=== PATIENT | male | born 1950 | race Caucasian/White ===

== ENCOUNTER 2016-05-03 08:57 | Outpatient (RCR) | payer OTHER | END 2016-08-01 | LOC: WSOH | DX: S09.90XD Unspecified injury of head, subsequent encounter (principal); X58.XXXD Exposure to other specified factors, subsequent encounter ==

== ENCOUNTER 2018-02-21 12:03 | Outpatient (CLI) | payer BC, OTHER ==
[~2018-02-21] VITALS: Ht 180.3 cm; Wt 95.9 kg
[2018-02-21] MEDS ORDERED: LIPITOR 10MG10 MG PO (14:04)
[2018-02-21] MEDS ORDERED: HYGROTON 2525 MG/TAB PO (14:05)
[2018-02-21 14:09] VITALS: BP 115/73; PULSE 52; TEMP 97.9
[2018-02-21 14:44] LABS: HEMATOCRIT 44.7 % (42.0-52.0); HEMOGLOBIN 15.6 g/dl (13.5-18.0); MEAN CELL VOLUME 93 fl (80.0-100.0); MEAN CORPUSCULAR HEMOGLOBIN 33 pg (27.0-31.0); MEAN CORPUSCULAR HGB CONC 35 g/dl (33.0-37.0); MEAN PLATELET VOLUME 9.2 fl (7.4-10.4); PLATELET COUNT 160 K/mm3 (130-400); REDCELL DISTRIBUTION WIDTH-CV 12.1 % (11.5-14.5)
[2018-02-21 14:45] LABS: INR 1.2 (0.8-3.0); PROTHROMBIN TIME 13.7 SECONDS (9.7-12.8)
[2018-02-21 14:48] LABS: PARTIAL THROMBOPLASTIN TIME 37.2 SECONDS (26.0-37.0)
[2018-02-21 15:04] LABS: ANISOCYTOSIS 1+; BAND 2 % (0-10); EOSINOPHIL 2 % (0-4); LYMPHOCYTE 16 % (20.0-51.0); NEUTROPHILS 76 % (42.0-75.2); PLATELET ESTIMATE NORMAL (NORMAL)
[2018-02-21 15:05] LABS: ALBUMIN 4.2 gm/dL (3.5-5.0); BILIRUBIN,TOTAL 1.2 mg/dL (0.0-1.0); CALCIUM 8.6 mg/dL (8.4-10.2); CREATININE, serum 1.19 mg/dL (0.66-1.25); POTASSIUM 3.2 mmol/L (3.4-5.0); TOTAL PROTEIN 8.2 gm/dL (6.4-8.2)
[2018-02-21 15:06] LABS: ERYTHROCYTE SEDIMENTATION RATE 38 mm/hr (0-30)
[2018-02-21 15:19] LABS: C-REACTIVE PROTEIN 21.6 mg/dL (0.0-0.9)
== END 2018-02-21 16:22 | disposition home or self-care (01) ==
LOC: EUO 12:03 → COL.VAS 12:03 → EUO 16:22
PROVIDERS: Family Medicine
DX: E86.0 Dehydration (principal); M79.89 Other specified soft tissue disorders
CPT/HCPCS: J7030